=== PATIENT | female | born 1970 | race Caucasian/White ===

== ENCOUNTER 2024-09-28 06:18 | Day surgery (SDC) | payer BC, SELFPAY ==
[2024-09-28] VITALS (9 sets, daily range): BP systolic 107–137; BP diastolic 63–76; BMI 41.6
[2024-09-28 07:20] LABS: Hematocrit 42.7 % (37.0-47.0); Hemoglobin 14.4 g/dL (12.0-16.0); Mean Corp Hgb Conc. 33.7 g/dL (33.0-37.0); Mean Corpuscular Hgb 31.4 pg (27.0-31.0); Mean Platelet Volume 9.8 fL (7.4-10.4); Platelet Count 221 10^3/uL (130-400); Red Blood Cell Count 4.59 10^6/uL (4.20-5.40); Red Cell Dist. Width 13.2 % (11.5-14.5); White Blood Cell Count 7.8 10^3/uL (4.8-10.8)
[2024-09-28] MEDS: LOW STRENGTH ASPIRIN 81 MG PO (07:26)
[2024-09-28 07:27] LABS: APTT 32.7 Sec (23.4-35.0)
[2024-09-28 08:04] LABS: ALT (SGPT) 21 U/L (0-35); AST (SGOT) 22 U/L (14-36); Albumin 4.3 g/dl (3.5-5.0); Alkaline Phosphatase 56 U/L (38-126); Blood Urea Nitrogen 11 mg/dl (7-17); Calcium 9.1 mg/dl (8.4-10.2); Carbon Dioxide 31 mmol/L (22-30); Chloride 103 mmol/L (98-107); Estimated Creatinine Clearance 88 ml/min; Glucose 107 mg/dl (70-99); Potassium 4.2 mmol/L (3.5-5.1); Sodium 144 mmol/L (135-145); Total Bilirubin 0.6 mg/dl (0.2-1.3); eGFR > 60.00
[2024-09-28] MEDS: NSS 1000 IV (09:55)
--- NOTE | 2024-09-28 10:47 | ITS.CL.CATH ---
Cytopathologist - Catheterization
Cardiac Catheterization
Procedure Report:
RIGHT AND LEFT HEART STUDY
Date of Procedure: September 28, 2024
Referring: Dr. Wilver Cunha
PROCEDURES:
1. Left heart catheterization
2. Right heart catheterization following LVEDP
INDICATION: Shortness of breath and chest discomfort with elevated coronary calcium score and CT scan
ACCESS: Right radial artery, 6 Salvadorean sheath in right common femoral vein, 6 Salvadorean sheath
HEMODYNAMICS : mmHg: Initial
AO (s/d, m) : 121/72, 94
LV (s/d) : 122/15
LVEDP : 32
CORONARY FINDINGS :
Dominance: Right
LEFT MAIN: Normal
LEFT ANTERIOR DESCENDING: The LAD arises normally from the left main and runs in the anterior interventricular groove. Mild coronary calcifications are noted in the proximal and mid LAD. The mid LAD just beyond the origin of the first diagonal
branch is a 30-40% stenosis. The remainder of the LAD has only very minor luminal irregularities in the distal vessel wraps around the apex
CIRCUMFLEX: The circumflex is a medium caliber nondominant vessel that supplies a single sizable obtuse marginal branch which is widely patent
RIGHT CORONARY ARTERY: The right coronary artery is a medium caliber dominant vessel with a 20-30% mid stenosis with no significant focal obstructive coronary disease. The mid to distal RCA has only very mild abnormal luminal irregularities. The
PDA is widely patent as is the posterolateral branch
VENTRICULOGRAPHY: Left ventriculography was performed in DELANEY projection. The digital single-plane left ventricular ejection fraction is estimated at 65% and no regional wall motion abnormalities are noted. The LVEDP was noted to be significantly
elevated and the decision was made to proceed with right heart catheterization with hemodynamic numbers as listed below
HEMODYNAMICS : mmHg :
RA (m) : 15
RV (s/d) : 50/12, 23
PA (s/d, m) : 47/27, 36
PCWP (m) : 26
Estimated Rosalie Cardiac Output: 6.1 L / min and Cardiac Index: 2.8 L/ min / m-2
Systemic vascular resistance: 13 Wood units or 1036 [id number](-5)
Pulmonary vascular resistance: 1.6 Wood units or 131 [id number](-5)
RADIATION SUMMARY: Fluoro Time (min): 5.8, Dose (mGy): 535, DAP (Gy.cm2) : 43.9
CONCLUSIONS
1. Nonobstructive coronary disease. Mild to moderate coronary calcification
2. Preserved left ventricular systolic function
3. Significant the elevated LVEDP, PA-diastolic pressure and and pulmonary capillary wedge pressure
RECOMMENDATIONS
1. Continue furosemide
2. Start SGLT2 for diastolic heart failure
Copy to: Dr. Wilver Cunha
[2024-09-28] MEDS: TYLENOL 650 MG PO (11:50)
== END 2024-09-28 12:45 | disposition home or self-care (01) ==
LOC: CATH 06:18
PROVIDERS: ATTENDING PHYSICIAN Internal Medicine Interventional Cardiology; FAMILY PHYSICIAN Family Medicine; OTHER PHYSICIAN Internal Medicine Cardiovascular Disease
DX: I25.10 Atherosclerotic heart disease of native coronary artery without angina pectoris (principal); R07.89 Other chest pain; R06.02 Shortness of breath; I25.84 Coronary atherosclerosis due to calcified coronary lesion
CPT/HCPCS: 80053; 85027; 85610; 85730; 93460; C1894; Q9967